=== PATIENT | male | born 1965 | race Caucasian/White ===

== ENCOUNTER 2020-06-21 16:36 | Inpatient (IN) | payer OTHER, SELFPAY ==
[2020-06-21] VITALS (66 sets, daily range): BP systolic 116–164; BP diastolic 85–118; PULSE 71–109; RESP 11–24; TEMP 36.8–37.2; O2SAT 88–98; BMI 29.8
--- NOTE | 2020-06-21 16:52 | XRR_ITS ---
PROCEDURE INFORMATION: Exam: XR Chest Exam date and time: 06/21/2020 4:54 PM Age: 54 years old Clinical indication: Chest pain; Additional info: Stemi TECHNIQUE: Imaging protocol: XR of the chest. Views: 1 view. COMPARISON: No relevant prior studies available. FINDINGS: Lungs: Unremarkable. No consolidation. Pleural spaces: Unremarkable. No pleural effusion. No pneumothorax. Heart/Mediastinum: Unremarkable. No cardiomegaly. Bones/joints: Unremarkable. XR/XR chest 1V portable [id number] IMPRESSION: No acute findings.
--- NOTE | 2020-06-21 16:52 | ECG_ITS ---
[facility] Test Date: 2020-06-21 Pat Name: MARY ELLIS Department: Room: ICU04 Gender: Male Client Services Account Manager: : 1965 Requested By: Tian Stern Order Number: [id number] Solano MD: Ovidio Ackerman M.D. Measurements Intervals [place] Rate: 80 P: 58 OR: 186 QRS: -10 QRSD: 107 T: 65 QT: 367 QTc: 425 Interpretive Statements SINUS RHYTHM WITH SINUS ARRHYTHMIA SEPTAL MYOCARDIAL INFARCTION [40+ ms Q WAVE IN V1/V2], PROBABLY RECENT Compared to ECG 06/21/2020 16:47:34 ST (T wave) deviation no longer present Myocardial infarct finding still present Electronically Signed On 06-22-2020 20:12:26 CDT by Ovidio Ackerman M.D. [email or web address]/store/[id number] ingris
[2020-06-21] MEDS: aspirin 81 mg Chew Tablet 324 MG PO (16:57)
--- NOTE | 2020-06-21 16:57 | XACV_ITS ---
Exam Room: [facility] Ht: 178 cm Wt: 94 kg BSA: 2.18 m2 Gender: Male : 1965 Exam Priority: Routine Procedure(s): Procedure Description: Diagnostic procedure Procedure Description: PCI procedure Procedure Description: Left Heart Catheterization Procedure Description: Drug Eluting Coronary Stent Procedure Description: PTCA Diagnostic Cath Status: Emergency Diagnostic Findings * CX has no significant stenosis. * RCA has minor luminal irregularities. * LAD is a large vessel. Proximal to mid LAD has a severe stenosis with large thrombus burden. Proximal Left Anterior Descending Coronary Artery to mLAD: Severe 99% stenosis, SANTY: 1 flow. * LM has 0% stenosis. * Coronary angiography shows right dominance. PCI Status: Emergency PCI Indication: STEMI - Immediate PCI for STEMI Interventional Findings * Procedure detail: We engaged left main artery using XB 3.5 guide catheter. IV heparin was used to maintain an ACT above 250 seconds. A 0.014 run-through guidewire was used to cross the LAD stenosis. We predilated the stenosis with 2.75 x 12 mm semicompliant balloon. This was followed by placement of 4.0 x 22 mm resolute [place] drug-eluting stent. At this time we noted no reflow/slow flow phenomenon.Post dilation of the stent was performed with a 4.0x8 mm NC balloon. Intracoronary cardene was initially delivered through the guide catheter without resolution of no reflow. We then delivered intracoronary cardene to distal coronary bed through a Teleport microcatheter. This resulted in resolution of no reflow and establishment of TIMI3 flow and resolution of ST changes. At this time final angiogram was performed that showed excellent stent expansion, no residual stenosis and SANTY-3 flow. Guidewire and guide catheter were removed. Femoral artery sheath was sutured in place for removal later. Patient left the Automation And Controls Manager in a stable condition. * Proximal Left Anterior Descending Coronary Artery to mLAD: 99% stenosis treated with AB TREK 2.75X12 RX BALLOON, MATILDE Ku MARIANNA 4.0X22 TODD, and MATILDE BO EUPHORA RX [id number] BALLOON. 0% residual stenosis, SANTY: 3 flow. Conclusions 1. There is thrombotic occlusion of the proximal to mid LAD (culprit for the acute ST elevation PR). 2. Mild left ventricular systolic dysfunction. Ejection fraction of 40%. 3. Proximal Left Anterior Descending Coronary Artery to mLAD was treated with two Balloon and Drug Eluting Stent. Recommendations * Transfer to ICU. * Aspirin and plavix for atleast 1 year. * High intensity statin therapy. * Beta blockers and lisinopril. * Order echocardiogram. * Outpatient cardiology follow up. Interventional RX Recommendation: PCI w/o planned CABG Diagnostic RX Recommendation: PCI w/o planned CABG Anticoagulation: Heparin Ventriculography Ejection Fraction: 40.0 % Left Ventriculography Findings: * Moderate hypokinesis of the apical segments. Pressures Phase:Rest AO : 126 / 84 ( 104 ) @ 1:05:00 PM 131 / 81 ( 106 ) @ 1:28:00 PM 136 / 67 ( 99 ) @ 1:28:00 PM LV : 149 / -10 / @ 1:27:00 PM 150 / -9 / @ 1:27:00 PM 142 / -2 / @ 1:28:00 PM 144 / -2 / @ 1:28:00 PM 145 / -3 / @ 1:28:00 PM Valves Phase:DefaultPhase AV : 11.0 @ 6:38:29 PM AV Mean Gradient: 22.0 @ 6:38:29 PM Clinical Evaluation EBL: 5mL-10mL Procedural Details Admit Source: Emergency department. Pre-Procedure Time Out. Identified patient by full name and date of as verbalized by the patient/guarantor. Does the consent match the physician's order: Yes. Accurate & Complete Informed Consent: Yes. Inpatient/Outpatient History & Physical on Chart: N/A Emergent. If H&P is completed, is and addenduem needed: N/A Emergent; If yes, is the addendum complete: N/A Emergent. Visualize and Verify Site with Patient/Guarantor: N/A. Relevant Radiology Images available: N/A Emergent. Pre-op teaching completed and patient verbalized understanding. The risks, benefits, and alternatives of sedation and/or procedure were discussed by physician. The patient agrees to continue. Procedure started. Correct patient, site and procedure confirmed by cath team. PERRLA. Strong, equal hand clinical engineering director bilaterally. Lungs clear x 5 lobes. IV Site on Arrival: 18 gauge in the left anticubital. Oxygen started at 2liters/min via nasal canula. bilateral groins was prepped with chloroprep then draped in the usual sterile fashion. right radial was prepped with chloroprep then draped in the usual sterile fashion. Physician notified. Baseline sample Acquired. HR: 86 BPM. Physician arrived. Physician scrubbed in. Immediate Pre-Procedure Time Out. Correct Patient: Yes; Correct Procedure: Yes; Correct Site: Yes; Correct Patient Position: Yes; Correct Supplies: Yes; Dried Flammable Prep: N/A Emergent; Informed Consent not obtained due to time critical life threat; Blood Products Available: N/A Emergent; Informed Consent not obtained due to time critical life threat;. Lidocaine 1% infiltrated to the right radial. Arterial access obtained. 6 kittitian XB 3.5 guide catheter was inserted over the wire. Guide catheter out. unable to advance catheter in radial. Lidocaine 1% infiltrated to the right groin. Arterial access obtained with micropuncture set. 6 kittitian XB 3.5 guide catheter was inserted over the wire. Runthrough guidewire was advanced through the guide catheter to lesion in the prox LAD. Inflation number : 1 A AB TREK 2.75X12 RX BALLOON was prepped and advanced across the Prox LAD , then inflated to 10 ALEXIS for 0:19 seconds. Inflation number: 2 The AB TREK 2.75X12 RX BALLOON was reinflated across the Prox LAD, to 12 ALEXIS for 0:18 seconds. checking results. Balloon out. Inflation Number : 3 A MATILDE Ku MARIANNA 4.0X22 TODD -Lot Number# [id number] exp date: 02-16-2022 was prepped and advanced across the Prox LAD. The stent was deployed at 12 ALEXIS for 0:27 seconds. Stent balloon and wire out. Inflation number : 4 A MDT NC EUPHORA RX [id number] BALLOON was prepped and advanced across the Prox LAD , then inflated to 12 ALEXIS for 0:20 seconds. Inflation number: 5 The MDT NC EUPHORA RX [id number] BALLOON was reinflated across the Prox LAD, to 12 ALEXIS for 0:21 seconds. Balloon out. Runthrough guidewire was advanced through the guide catheter to lesion in the distal LAD. teleport microcatheter 2.1F in over wire to inject Cardene. short runthrough out. 300 runthrough out. 300 runthrough inserted through teleport. teleport out. runthrough out. Guide catheter out. A 5 kittitian JR4 catheter in over wire. Multiple views taken of right coronary artery. ACT drawn. Results 201 seconds. Therapeutic limits - pre-heparin administration 90-150 seconds and monitoring heparin during a vascular procedure >250 seconds. Catheter out. A 5 kittitian Angled Pig catheter in over wire. EDP Sample taken: LV 149/-11,22; HR: 95 BPM; SpO2: Off%. LV gram performed in MARTINEZ @ 10 mL/second for a total of 30 mL. EDP Sample taken: LV 142/-3,24; HR: 100 BPM; SpO2: 98%. Pullback taken: LV 145/-4,22; AO 131/81(106); Mean: 22mmHg, Peak to Peak: 11mmHg, SEP: 9sec/min; HR: 94 BPM; SpO2: 98%. Catheter removed over the exchange wire. randal shot performed. TR band placed. Hemostasis obtained. Sheath(s) sutured into position with 2-0 silk and sterile 4x4's and Op-site applied over the site. No oozing or signs and symptoms of hematoma noted. Arterial sheath flushed and connected to tranducer and pressure bag with heparinized saline. PERRLA. Strong, equal hand clinical engineering director bilaterally. No VTE prophylaxis required. Medication's Wasted: Lidocaine 1% = 5 mL. Medication's Wasted: Nitro = 49.6 mg. Medication's Wasted: Other = Cardene 24.25 mg. Medication's Wasted: Heparin = 1000 units. Total IV fluids: 75 mL. Contrast type used: Omnipaque 300 mgI/mL, 500 mL bottle. Contrast Material : Omnipaque 325 ml. [facility] Clinical Fraility Score: 2: Well. Automation And Controls Manager Indications: ACS <= 24 hours. Chest Pain Symptom Assessment: Typical Angina Symptoms. Cardiovascular Instability: No,. PCI Indication: STEMI - Stable (<= 12 hrs from symptom onset). Post-op diagnosis: acute ST elevation PR, PCI. Complications: none. Estimated blood loss: 5mL-10mL. Procedure completed. A Suture was successful obtaining hemostatsis at the Right Femoral artery insertion site. A TR Band was successful obtaining hemostatsis at the Right Radial artery insertion site. Patient transferred by bed to ICU. Vital chart was stopped. Access Site Site: Right Radial artery Sheath Size: 6 Fr Hemostasis Method: TR Band Hemostasis Success: Successful Site: Right Femoral artery Sheath Size: 6 Fr Hemostasis Method: Suture Hemostasis Success: Successful Procedure Medications Start: 5:33 PM Stop: 5:33 PM Medication: Versed Amount: 1 mg Route: I.V. Start: 5:33 PM Stop: 5:33 PM Medication: Fentanyl Amount: 50 mcg Route: I.V. Start: 5:35 PM Stop: 5:35 PM Medication: Versed Amount: 1 mg Route: I.V. Start: 5:36 PM Stop: 5:36 PM Medication: Nitrogylcerin Amount: 200 mcg Route: I.A. Start: 5:40 PM Stop: 5:40 PM Medication: Fentanyl Amount: 50 mcg Route: I.V. Start: 5:46 PM Stop: 5:46 PM Medication: Heparin Amount: 6000 units Route: I.V. Start: 5:51 PM Stop: 5:51 PM Medication: Aggrastat 12.5 mg/250 mL Amount: 47 ml Route: I.V. bolus Start: 5:52 PM Stop: 5:52 PM Medication: Aggrastat 12.5 mg/250 mL Amount: 16.9 ml/hr Route: I.V. drip Start: 5:57 PM Stop: 5:57 PM Medication: Nitrogylcerin Amount: 200 mcg Route: I.C. Start: 5:58 PM Stop: 5:58 PM Medication: Cardene Amount: 250 mcg Route: I.C. Start: 6:03 PM Stop: 6:03 PM Medication: Cardene Amount: 250 mcg Route: I.C. Start: 6:12 PM Stop: 6:12 PM Medication: Cardene Amount: 250 mcg Route: I.C. Start: 6:27 PM Stop: 6:27 PM Medication: Heparin Amount: 2000 units Route: I.V. I, the attending physician, have reviewed and verified all procedure medications. Yes, all medications given per verbal order Report Signatures Finalized by Ovidio Ackerman MD on 07/05/2020 06:58 PM
[2020-06-21] MEDS: morphine 4 mg/mL SDV 1 mL 2 MG IVP (16:59)
[2020-06-21] MEDS: ondansetron 2 mg/ML SDV 2 mL 4 MG IVP (17:00)
[2020-06-21] MEDS: clopidogrel 300 mg Tablet 600 MG PO (17:00)
[2020-06-21] MEDS: nitroglycerin drip 50 MG/250 ML PREMIX IV (17:01)
[2020-06-21] MEDS: heparin 5,000 unit/mL INJ 1 mL 4000 UNIT IVP (17:01)
--- NOTE | 2020-06-21 17:12 | P.HP_ITS ---
Providers/Chief Complaint Admitting Physician: Ovidio Ackerman MD Chief Complaint: CP History of Present Illness MARY ELLIS is a 54 year old male with no significant past medical history and tobacco abuse who was visiting [place] for the weekend started noticing chest discomfort last night. It was on and off. Throughout the day he had significant chest discomfort. Since noon (4-5 hours ago) the chest discomfort became more continuous. Severe and radiating to the jaw and both arms. EKG performed in the ER shows ST elevations in the anterior leads. Patient has been loaded with aspirin and Plavix. He has also received heparin bolus. He was emergently taken to the Traffic Sign Supervisor and coronary angiogram showed large thrombus burden in proximal LAD. He underwent successful revascularization with TODD x1. Review of Systems Narrative: CONSTITUTIONAL: No fever chills weight loss or gain or night sweats. [] HEENT: Normocephalic, atraumatic.[] RESPIRATORY: No cough, sputum, hemoptysis or wheezing.[] CARDIOVASCULAR: Severe chest pain GI: no nausea vomiting diarrhea. [] MELT SUPERVISOR: No numbness, tingling, weakness or loss of function in any part of the body. [] MUSCULOSKELETAL: No knee or joint pain or rashes. [] Medications/Allergies Home Medications Medication Instructions Recorded Confirmed Last Taken Type No Known Home Medications 06/21/20 06/21/20 Unknown History Allergies Allergy/AdvReac Type Severity Reaction Status Date / Time rosuvastatin [From Crestor] Allergy Unknown Verified 06/21/20 17:24 PFSH Acute PFSH: Family History Other Hypertension Social History Smoking and tobacco status: current every day smoker Vitals/I&O/Wt Last Vital Signs Temp 98.9 F 06/21/20 16:55 Pulse 91 06/21/20 17:01 Resp 16 06/21/20 17:01 BP 164/111 06/21/20 17:01 Pulse Ox 98 06/21/20 17:01 Weight last 48 hrs Weight 208 lb Physical Exam Narrative: EXAM NARRATIVE: GENERAL: Patient is alert, awake and oriented x3. [] NECK: No jugular vein distension. [] HEENT: No cyanosis. No icterus. No pallor. [] HEART: Regular S1 and S2. No murmur, rub or gallop. [] LUNGS: Clear to auscultate bilaterally. [] ABDOMEN: Soft, nontender and nondistended. Positive bowel sounds. No guarding, rebound or tenderness. [] CENTRAL NERVOUS SYSTEM: Grossly nonfocal. [] EXTREMITIES: Lower extremities with no edema bilaterally. Pulses palpable in the lower extremities, both dorsalis pedis and posterior tibial. [] Data : 06/21/20 16:54 06/21/20 16:54 A&P Assessment and plan (1) STEMI (ST elevation myocardial infarction): Status: Acute (2) Tobacco abuse: Status: Acute Patient haD acute ST elevation [place]. Emergent coronary angiogram demonstrated thrombotic occlusion of proximal LAD for which he underwent successful revascularization with TODD x1. SANTY-3 flow established. Admit to ICU Continue aspirin and Plavix for at least 1 year Beta-rufus and lisinopril Order echocardiogram. Smoking cessation advised. Attestations Medical Necessity Statement*: Care expected to cross [address] mid[address]. Patient presented with ST elevation [place] and underwent successful revascularization of proximal LAD. Coding Level of Care Code Acute Metal Casting Trades Worker for [facility] Diagnoses STEMI (ST elevation myocardial infarction) I21.3 Tobacco abuse Z72.0
--- NOTE | 2020-06-21 17:12 | ED_ITS ---
HPI - Chest Pain General: Chief Complaint: Chest Pain Stated Complaint: CP Time Seen by Provider: 06/21/20 16:49 History of Present Illness: HPI narrative: The patient is a 54-year-old male smoker who comes to the ER complaining of left-sided chest pain on and off through the night and it has persisted today. Also has shortness of breath and nausea. Pain radiates to his left jaw and left shoulder. EKG shows STEMI in leads V2 through 5. He says his brother in his early 40s from a heart attack. MD complaint: chest pain Timing of current episode: constant Onset: during rest and during exertion Pain location: left chest Pain radiation: jaw/teeth and left shoulder Quality: sharp Relieving factors: nothing Exacerbating factors: exertion Associated symptoms: Reports no associated symptoms; Deny abdominal pain, dyspnea or palpitations Treatment prior to arrival: none Review of Systems General: Reports: 10 or more systems reviewed and unremarkable except in HPI and below Const: Denies: fatigue Eyes: Denies: change in vision, blurry vision or eye redness ENMT: Denies: throat pain, swelling of lips/tongue, ear or mastoid pain or nasal congestion Card: Reports: chest pain; Denies: palpitations, irregular heart rhythm, edema, dyspnea on exertion or orthopnea Resp: Denies: dyspnea, productive cough or non-productive cough GI: Denies: abdominal pain, diarrhea or GI cramping : Denies: flank pain, urinary frequency or urinary urgency Musc: Denies: neck pain, back pain, extremity pain, joint pain, joint redness, limited range of motion or muscle weakness Skin/Breast: Denies: rash, pruritus, erythema, skin pain or skin tenderness Neuro: Denies: headache(s), numbness in extremities, weakness in extremities, sensory changes, difficulty walking, dizziness, confusion or Slurred speech present Psych: Denies: anxiety or depression Endo: Denies: polyuria All/Imm: Denies: urticaria, throat swelling or tongue swelling PFSH ED PFSH: Family History (Updated 06/21/20 @ 17:16 by Ovidio Ackerman M.D) Other Hypertension Social History Smoking and tobacco status: current every day smoker Physical Exam Const: COMMON NORMALS: no acute distress, average body habitus, patient oriented x3, no limitations, healthy appearing, alert and well nourished GENERAL APPEARANCE: cooperative, comfortable, well kempt and well developed ORIENTATION/CONSCIOUSNESS: Yes awake, Yes oriented to person, Yes oriented to place and Yes oriented to time HENMT: COMMON NORMALS: normocephalic, external ears normal and Normal external nose present HEAD & SCALP: normal to inspection and normocephalic NOSE: Normal external nose present EXTERNAL EAR: Yes external ears normal MOUTH: Normal oral and palatal mucosa present THROAT: posterior oropharynx normal Eye: COMMON NORMALS: Equal, round and reactive pupils present and EOMs intact bilaterally GENERAL EYE: appearance normal, both eyes and all related structures PUPIL: Yes Equal, round and reactive pupils present Neck/C-Spine: COMMON NORMALS: full ROM, no lymphadenopathy, no meningeal signs and no JVD GENERAL: Yes normal visual inspection Lymph: LYMPHATIC: no lymphadenopathy noted Chest: COMMONS NORMALS: normal inspection of the chest and normal palpation of entire chest wall Resp: COMMON NORMALS: normal respiratory effort, No retractions, No use of accessory muscles, clear to auscultation bilaterally and percussion normal EFFORT & INSPECTION: Yes able to speak in complete sentences AUSCULTATION: clear to auscultation bilaterally PERCUSSION: percussion normal Cardio: COMMON NORMALS: no JVD, regular rate, regular rhythm, S1 normal heart sound present, S2 normal heart sound present and Peripheral pulses 2+ throughout RATE: regular rate RHYTHM: regular rhythm HEART SOUNDS: S1 normal heart sound present and S2 normal heart sound present PERIPHERAL PULSES: Peripheral pulses 2+ throughout GI: COMMON NORMALS: Normal to inspection, nondistended, normoactive bowel sounds present, Soft to palpation, non-tender and no masses INSPECTION: Yes normal to inspection PALPATION: Yes Soft to palpation : COMMON NORMALS: Yes no CVA tenderness BLADDER/KIDNEY EXAM: Yes no CVA tenderness Back/Pelvis: COMMON NORMALS: no CVA tenderness, thoracic and lumbar spine normal to inspection, no thoracic nor lumbar tenderness and thoraco-lumbar ROM normal Extremity: COMMON NORMALS: normal to inspection, full ROM, capillary refill normal, no joint enlargement and no pedal edema GENERAL: Yes normal exam except as noted Neuro: COMMON NORMALS: patient oriented x3, CN's II-XII intact bilaterally, moves all extremities, no focal motor deficits, no sensory deficits noted and gait normal SENSORIUM/ORIENTATION: Yes alert, Yes oriented to person, Yes oriented to place and Yes oriented to time MENINGEAL SIGNS: Yes no meningeal signs Psych: COMMON NORMALS: mental status grossly normal, Normal thought process present, cooperative, normal affect and speech normal APPEARANCE: Yes well kempt ATTITUDE: Yes calm SPEECH: Yes normal speech THOUGHT PROCESS: Normal thought process present Skin: COMMON NORMALS: no rashes or lesions noted GENERAL SKIN EXAM: no rashes or lesions noted Course Vital Signs: Vital signs: Vital Signs Temperature 98.9 F 06/21/20 16:55 Pulse Rate 91 06/21/20 17:01 Respiratory Rate 16 06/21/20 17:01 Blood Pressure 164/111 06/21/20 17:01 Pulse Oximetry 98 06/21/20 17:01 MDM - Chest Pain MDM Narrative: Medical decision making narrative: 514pm: STEMI seen on EKG read by me at 1648 and immediately activated a STEMI alert. Discussed with Dr. Ackerman over the phone the EKG findings and he arrived shortly thereafter. Given aspirin, Plavix, heparin load, morphine, Zofran, nitroglycerin drip. Waiting on Scrub Nurse for transfer. Left ed in stable condition at 1726 to quality assurance qa lab analyst Lab Data: Labs: Lab Results 06/21/20 06/21/20 Range/Units 16:54 16:54 WBC 13.2 H (4.0-10.0) 10^3/ uL RBC 4.86 (4.1-5.3) 10^6/u L Hgb 15.0 (11.7-16.6) g/dL Hct 45.2 (42.0-52.0) % MCV 93.0 (80-94) fL MCH 30.9 (28.0-34.0) pg MCHC 33.2 (30.0-36.0) g/dL RDW 13.2 (12.1-15.1) % Plt Count 226 (130-400) 10^3/c mm MPV 11.2 H (7.4-10.4) fL Neut % (Auto) 86.5 % Lymph % (Auto) 9.9 % [place] % (Auto) 2.7 % Eos % (Auto) 0.2 % Baso % (Auto) 0.2 % Neut # (Auto) 11.40 H (1.8-7.7) 10^3/u L Lymph # (Auto) 1.3 (0.8-4.8) 10^3/u L [place] # (Auto) 0.4 (0.2-0.9) 10^3/u L Eos # (Auto) 0.0 (0.0-0.8) 10^3/u L Baso # (Auto) 0.0 (0.0-0.1) 10^3/u L Nucleated RBC % (a uto) 0 % Nucleated RBCs # 0.0 /100WBC PT 13.10 (12.1-14.9) SECO NDS INR 0.96 (0.8-1.2) APTT 28.1 (23.9-36.7) SECO NDS Discharge Plan Discharge Patient Disposition: Admitted As Inpatient Clinical Impression: STEMI (ST elevation myocardial infarction) Condition: Stable Coding Level of Care Code ED Architecture Faculty Member for Michelle Fwd Exam Comprehensive
[2020-06-21 17:15] LABS: Basophils % 0.2 %; Eosinophils % 0.2 %; Hematocrit 45.2 % (42.0-52.0); Lymphocytes # 1.3 10^3/uL (0.8-4.8); Lymphocytes % 9.9 %; Mean Corpuscular HGB Conc 33.2 g/dL (30.0-36.0); Mean Corpuscular Hemoglobin 30.9 pg (28.0-34.0); Mean Platelet Volume 11.2 fL (7.4-10.4); Monocytes # 0.4 10^3/uL (0.2-0.9); Monocytes % 2.7 %; Neutrophils % 86.5 %; Nucleated Red Blood Cells % 0 %; Platelet Count 226 10^3/cmm (130-400); Red Blood Count 4.86 10^6/uL (4.1-5.3); Red Cell Distribution Width 13.2 % (12.1-15.1); White Blood Count 13.2 10^3/uL (4.0-10.0)
[2020-06-21 17:22] LABS: INR 0.96 (0.8-1.2)
[2020-06-21 17:23] LABS: Partial Thromboplastin Time 28.1 SECONDS (23.9-36.7)
[2020-06-21 17:26] LABS: D Dimer <= 0.27 ug/mIFEU (0-0.59)
[2020-06-21 17:36] LABS: Troponin(5th) Baseline 72 ng/L (0-15)
[2020-06-21 17:43] LABS: Alanine Aminotransferase 16 U/L (0-41); Albumin Level 4.8 g/dL (3.5-5.2); Alkaline Phosphatase 108 IU/L (40-130); Anion Gap 15.7 (5-19); Aspartate Amino Transferase 18 U/L (0-40); Blood Urea Nitrogen 20 mg/dL (6-20); Calcium 9.5 mg/dL (8.5-10.5); Carbon Dioxide 27 mmol/L (22-29); Chloride 104 mmol/L (98-107); Creatine Phosphokinase 168 U/L (39-308); Globulin 1.9 g/dL (1.3-4.6); Glomerular Filtration Rate 100.7 mL/min (90-130); Glucose 131 mg/dL (65-115); NT Pro B Type Natriuretic Pept 489 pg/mL (0-125); Osmolality Calculated 298 mOsm/kg (285-295); Potassium 4.7 mmol/L (3.5-5.1); Sodium 142 mmol/L (136-145); Total Bilirubin 0.2 mg/dL (0.15-1.2); Total Protein 6.7 g/dL (6.6-8.7)
[2020-06-21] MEDS: sodium chloride 0.9% 1,000 ML 100 ML IV (19:55)
[2020-06-21 19:59] LABS: Troponin 5 2HR 4574 ng/L (0-15); Troponin 5 2HR Delta 4502 ABS# (0-10)
--- NOTE | 2020-06-21 22:52 | ECG_ITS ---
[facility] Test Date: 2020-06-21 Pat Name: MARY ELLIS Department: Room: Gender: Male Commercial Housekeeper: : 1965 Requested By: Tian Stern Order Number: [id number] Solano MD: Ovidio Ackerman M.D. Measurements Intervals [place] Rate: 83 P: 56 LA: 159 QRS: -13 QRSD: 96 T: 37 QT: 335 QTc: 395 Interpretive Statements SINUS RHYTHM WITH SINUS ARRHYTHMIA POSSIBLE RIGHT VENTRICULAR CONDUCTION DELAY [RSR (QR) IN V1/V2] SEPTAL MYOCARDIAL INFARCTION [40+ ms Q WAVE IN V1/V2], POSSIBLY ACUTE MARKED ST ELEVATION, CONSIDER ANTEROLATERAL INJURY [MARKED ST ELEVATION W/O NORMALLY INFLECTED T WAVE IN V3-V6] ACUTE [place] No previous ECG available for comparison Electronically Signed On 06-22-2020 20:15:08 CDT by Ovidio Ackerman M.D. [email or web address]/[id number]
[2020-06-22] VITALS (88 sets, daily range): BP systolic 103–137; BP diastolic 54–102; PULSE 70–101; RESP 10–30; TEMP 36.6; O2SAT 87–96
[2020-06-22 00:44] LABS: Troponin 5 6HR 4847 ng/L (0-15); Troponin 5 6HR Delta 4775 ng/L (0-12)
[2020-06-22 00:46] LABS: Partial Thromboplastin Time 24.2 SECONDS (23.9-36.7)
[2020-06-22] MEDS: atorvastatin 40 mg Tablet 80 MG PO ×2 (01:35→20:04)
--- NOTE | 2020-06-22 02:29 | PC.NURSE ---
Patient arrived to ICU from clinical laboratory medical director at 1900 on 06/21/20. Patient a&o x4. Right radial TR Band on with 16 mL's of air. Right femoral sheath in place. TR band off at 2330. Sheath pulled at 0118, pressure held until 0138. No s/s of bleeding or hematoma noted. Patient tolerated well. Continue care.
[2020-06-22] MEDS: sodium chloride 0.9% 1,000 ML 100 ML IV (04:36)
[2020-06-22 06:05] LABS: Basophils % 0.2 %; Eosinophils # 0.1 10^3/uL (0.0-0.8); Eosinophils % 0.7 %; Hematocrit 39.3 % (42.0-52.0); Hemoglobin 12.8 g/dL (11.7-16.6); Lymphocytes # 1.4 10^3/uL (0.8-4.8); Mean Corpuscular HGB Conc 32.6 g/dL (30.0-36.0); Mean Corpuscular Hemoglobin 30.5 pg (28.0-34.0); Mean Corpuscular Volume 93.6 fL (80-94); Mean Platelet Volume 11.6 fL (7.4-10.4); Monocytes # 0.8 10^3/uL (0.2-0.9); Monocytes % 7.6 %; Neutrophils % 77.1 %; Nucleated Red Blood Cells % 0 %; Platelet Count 173 10^3/cmm (130-400); Red Cell Distribution Width 13.3 % (12.1-15.1); White Blood Count 9.9 10^3/uL (4.0-10.0)
[2020-06-22 06:29] LABS: Anion Gap 12.6 (5-19); Blood Urea Nitrogen 15 mg/dL (6-20); Calcium 8.7 mg/dL (8.5-10.5); Carbon Dioxide 27 mmol/L (22-29); Chloride 106 mmol/L (98-107); Glomerular Filtration Rate 140.4 mL/min (90-130); Glucose 130 mg/dL (65-115); Osmolality Calculated 297 mOsm/kg (285-295); Potassium 3.6 mmol/L (3.5-5.1); Sodium 142 mmol/L (136-145)
[2020-06-22] MEDS: metoprolol tartrate 25 mg Tablet PO ×2 (07:59→20:04)
[2020-06-22] MEDS: aspirin 81 mg EC Tablet PO (08:00)
[2020-06-22] MEDS: clopidogrel 75 mg Tablet PO (08:00)
[2020-06-22] MEDS: lisinopril 10 mg Tablet PO (08:00)
--- NOTE | 2020-06-22 08:08 | PM.PN ---
Subjective Subjective: Interval history: Patient is doing well. No complaints of chest pain, shortness of breath or palpitations. His echo shows LVEF of 40%. Vitals/I&O/Wt Last Vital Signs Temp 98.3 F 06/21/20 18:55 Pulse 77 06/22/20 06:00 Resp 26 H 06/22/20 06:00 BP 131/89 06/22/20 06:00 Pulse Ox 90 06/22/20 06:00 06/21/20 06/22/20 06/22/20 22:59 06:59 14:59 Intake Total 931.667 / 991.667 Output Total 1400 / 1400 Balance 60 60 -468.333 / -408.333 Weight last 48 hrs Weight 208 lb Physical Exam Narrative: EXAM NARRATIVE: GENERAL: Patient is alert, awake and oriented x3. [] NECK: No jugular vein distension. [] HEENT: No cyanosis. No icterus. No pallor. [] HEART: Regular S1 and S2. No murmur, rub or gallop. [] LUNGS: Clear to auscultate bilaterally. [] ABDOMEN: Soft, nontender and nondistended. Positive bowel sounds. No guarding, rebound or tenderness. [] CENTRAL NERVOUS SYSTEM: Grossly nonfocal. [] EXTREMITIES: Lower extremities with no edema bilaterally. Pulses palpable in the lower extremities, both dorsalis pedis and posterior tibial. [] Data : 06/22/20 05:15 06/22/20 05:15 A&P Assessment and plan (1) STEMI (ST elevation myocardial infarction): Status: Acute (2) Tobacco abuse: Status: Acute Patient had acute ST elevation OR. Emergent coronary angiogram demonstrated thrombotic occlusion of proximal LAD for which he underwent successful revascularization with TODD x1. SANTY-3 flow established. Continue aspirin and Plavix for at least 1 year Beta-rufus and lisinopril ECHO shows moderately reduce LV systolic function with severe hypokinesis in the distribution of the LAD. No LV thrombus seen Smoking cessation advised. Patient can be transferred out of the ICU Attestations Medical Necessity Statement*: Care expected to cross 2 midnights. Patient had acute OR s/p successful revascularization Coding Level of Care Code Acute Taker Off [place] for [facility] Diagnoses STEMI (ST elevation myocardial infarction) I21.3 Tobacco abuse Z72.0
--- NOTE | 2020-06-22 11:24 | PC.NURSE ---
Patient was able to sit up on edge of the bed and move to chair to eat breakfast at 0740. After meal patient ambulated 2 laps around unit. Dressing on groin was dry and intact before and after ambulation. Vitals WNL
--- NOTE | 2020-06-22 12:23 | PC.CHAP ---
Pastoral Care Encounter/Spiritual Assessment Type of Contact [] Declined paper plate machine tender visit [] Patient/Family/Request visit [] Outpatient visit [x] Follow-up visit [] Physician referral [] Code/Alert [] Routine visit [] Staff referral [] Actively dying [] Patient sleeping [] Family support [] [] Out of room [] Palliative care [] [] Receiving care in room [] Pre-surgical visit [] Trauma [] Long length of stay [] ICU visit [] Other: Relational/Emotional Strength [] Patient feels connected with others/family/visitors/staff [] Distress [] Loneliness/isolation [] Abandonment Spirituality of Patient [] Person of Danii [] Attends Cheondoism of their Danii [] Believes in Prayer [] Reads Bible or Sabianism materials [] There are Spiritual issues to be addressed Pneumatic Tube Operator Interventions [] Prayer [] Active listening [] Non-anxious presence [] Spiritual/emotional support [] Crisis/trauma care [] Spiritual counseling [] Bereavement support [] Provided bereavement packet [] Provided Bible/devotional materials [] Provided toy/stuffed animal, coloring book to patient or family member [] Provided Communion [] Anointing/Cope [] Salvation [] Completed spiritual assessment [] Other: Impact on Illness or Injury [] Angry [] Fearful [] Anxious [] Often cries [] Exhaustion [] Unable to work [] Unable to attend moravian [] Unable to walk/stand [] Unable to read [] Unable to drive [] Unable to eat/drink [] Unable to sleep [] Unable to be with family [] Patient intubated [] Other: Summary Time spent with patient
--- NOTE | 2020-06-22 12:38 | USCV_ITS ---
MARY ELLIS Age: 54 Gender: M : 1965 Exam Date: 06/22/2020 13:37 Ordering Phys: Ovidio Ackerman M.D ([email or web address]) Technologist: Álvaro Morales Exam Location: [facility] [place] Indication: WALL MOTION BP: / HR: 78 Rhythm: Sinus Technical Quality: Adequate MEASUREMENTS (Male / Female) Normal Values 2D ECHO LV Ejection Fraction MOD 2C 46.4 % LV Ejection Fraction 2C AL 45.5 % FINDINGS Left Ventricle LV systolic function is moderately reduced with EF of 40%. There is severe hypokinesis of the apical, distal anterolateral, distal inferoseptal and anterior yu. No LV thrombus is seen Right Ventricle Right Atrium Left Atrium Mitral Valve Aortic Valve Tricuspid Valve Pulmonic Valve Pericardium Aorta CONCLUSIONS Moderately reduced LV systolic function with above mentioned regional wall motion abnormalities No LV thrombus is seen Ovidio Ackerman MD (Electronically Signed) Final Date: 22 June 2020 18:16 S
[2020-06-22] MEDS: perflutren protein-a microsphr 0.22 mg/mL SDV 3 mL IV (14:35)
--- NOTE | 2020-06-22 19:49 | USCV_ITS ---
MARY ELLIS Age: 54 Gender: M : 1965 Exam Date: 06/22/2020 06:42 Ordering Phys: Ovidio Ackerman M.D ([email or web address]) Technologist: Álvaro Morales [place]am [place] [facility] [place] Indication: POST CO STENTS BP: 127 / 89 HR: 77 Rhythm: Sinus Technical Quality: Fair MEASUREMENTS (Male / Female) Normal Values 2D ECHO LV Diastolic Diameter PLAX 5.1 cm 4.2 - 5.9 / 3.9 - 5.3 cm LV Systolic Diameter PLAX 3.3 cm IVS Diastolic Thickness 1.3 cm 0.6 - 1.0 / 0.6 - 0.9 cm IVS Systolic Thickness 1.4 cm LVPW Diastolic Thickness 1.5 cm 0.6 - 1.0 / 0.6 - 0.9 cm LVPW Systolic Thickness 1.3 cm LVOT Diameter 2.0 cm LV Ejection Fraction 2D Teich 51.0 % LA Diameter 3.1 cm LA Width 3.7 cm LA Height 4.5 cm RA Width 3.5 cm Aorta at Sinotubular Diameter 2.4 cm M-MODE LV Diastolic Diameter MM 5.4 cm 4.2 - 5.9 / 3.9 - 5.3 cm LV Systolic Diameter MM 3.9 cm LV Ejection Fraction MM Teich 52.6 % IVS Diastolic Thickness MM 1.0 cm 0.6 - 1.0 / 0.6 - 0.9 cm IVS Systolic Thickness MM 1.6 cm LVPW Diastolic Thickness MM 1.1 cm 0.6 - 1.0 / 0.6 - 0.9 cm LVPW Systolic Thickness MM 1.7 cm RV Diastolic Diameter MM 1.4 cm Aortic Annulus Diameter 3.8 cm LA Ao Ratio MM 0.8 MV E Point Septal Separation 1.1 cm DOPPLER AV Peak Velocity 110.0 cm/s LVOT Peak Velocity 82.0 cm/s AV Area Cont Eq vti 2.3 cm squared AV Area Cont Eq pk 2.4 cm squared MV Area PHT 5.0 cm squared Mitral E to A Ratio 1.2 MV E' Velocity 49.5 cm/s Mitral E to MV E' Ratio 10.9 Mitral E to LV E' Lateral Ratio 11.8 Mitral E to LV E' Septal Ratio 10.3 TR Peak Velocity 162.0 cm/s TR Peak Gradient 10.5 mmHg Right Atrial Pressure 2.0 mmHg Pulmonary Artery Systolic Pressu 12.5 mmHg PV Peak Velocity 93.0 cm/s FINDINGS Left Ventricle Left ventricle is mildly dilated. LV systolic function is moderately reduced with EF of 35-40%. There is severe hypokineis of the apical, anterior, anteroseptal, and apical inferoseptal yu. Normal diastolic filling pattern. Can not rule out LV thrombus Right Ventricle The right ventricle is normal in size and function. Right Atrium The right atrium is normal in size. Left Atrium The left atrium is normal in size. Mitral Valve Structurally normal mitral valve without significant stenosis or prolapse. There is no mitral regurgitation. Aortic Valve Grossly normal without significant sclerosis or stenosis. There is no aortic regurgitation. Tricuspid Valve Structurally normal tricuspid valve without significant stenosis or regurgitation. Insufficient TR jet to calculate RVSP. Pulmonic Valve Structurally normal pulmonic valve without significant stenosis. There is no pulmonic regurgitation. Pericardium Normal pericardium without effusion. Aorta Normal ascending aorta dimension. CONCLUSIONS LV systolic function is moderately reduced with EF of 35-40%. Above mentioned regional wall motion abnormalities Diastolic function is normal No significant valvular heart disease No comparison studies are available Recommend echo with contrast to rule out LV thrombus Ovidio Ackerman MD (Electronically Signed) Final Date: 22 June 2020 12:37 S
[2020-06-23] VITALS (16 sets, daily range): BP systolic 107–128; BP diastolic 74–87; PULSE 65–86; RESP 10–26; TEMP 36.8; O2SAT 90–96
--- NOTE | 2020-06-23 06:32 | PC.NURSE ---
Patient got up to chair several times during the night and ambulated to the bathroom independently. Patient denied having any pain all evening. Dr. Ackerman discussed discharging the patient if all safety measures are met. Continue care.
[2020-06-23] MEDS: lisinopril 10 mg Tablet PO (09:34)
[2020-06-23] MEDS: metoprolol tartrate 25 mg Tablet PO (09:34)
[2020-06-23] MEDS: clopidogrel 75 mg Tablet PO (09:34)
[2020-06-23] MEDS: aspirin 81 mg EC Tablet PO (09:35)
--- NOTE | 2020-06-23 09:53 | PM.DCS ---
Discharge Providers Date of Admission: 06/21/20 18:27 Date of Discharge: June 23, 2020 Attending Provider at Admission: Ovidio Ackerman M.D Attending Provider at Discharge: Ovidio Ackerman M.D Diagnoses at Discharge Discharge Diagnosis (1) STEMI (ST elevation myocardial infarction): (2) Tobacco abuse: Status: Acute Reason for Visit Reason for Visit: CP Brief History: MARY ELLIS is a 54 year old male with no significant past medical history and tobacco abuse who was visiting [place] for the weekend started noticing chest discomfort last night. It was on and off. Throughout the day he had significant chest discomfort. Since noon (4-5 hours ago) the chest discomfort became more continuous. Severe and radiating to the jaw and both arms. EKG performed in the ER shows ST elevations in the anterior leads. Patient was loaded with aspirin and Plavix. He also received heparin bolus. Hospital Course Hospital Course MARY ELLIS is a 54 year old male with no significant past medical history and tobacco abuse who was visiting [place] for the weekend started noticing chest discomfort last night. It was on and off. Throughout the day he had significant chest discomfort. Since noon (4-5 hours ago) the chest discomfort became more continuous. Severe and radiating to the jaw and both arms. EKG performed in the ER shows ST elevations in the anterior leads. Patient was loaded with aspirin and Plavix. He also received heparin bolus. He was found to have thrombotic occlusion of proximal LAD. We performed successful revascularization with TODD x1 with resolution of ST changes and chest pain. Echocardiogram showed LVEF of 40%. Patient stayed in the hospital for 2 nights and was in stable condition at time of discharge. Physical Exam Narrative: EXAM NARRATIVE: GENERAL: Patient is alert, awake and oriented x3. [] NECK: No jugular vein distension. [] HEENT: No cyanosis. No icterus. No pallor. [] HEART: Regular S1 and S2. No murmur, rub or gallop. [] LUNGS: Clear to auscultate bilaterally. [] ABDOMEN: Soft, nontender and nondistended. Positive bowel sounds. No guarding, rebound or tenderness. [] CENTRAL NERVOUS SYSTEM: Grossly nonfocal. [] EXTREMITIES: Lower extremities with no edema bilaterally. Pulses palpable in the lower extremities, both dorsalis pedis and posterior tibial. [] Discharge Data Data Completed and Pending: Completed Studies During Hospitalization Category Date Time Status XR chest 1V brigid ble [id number] Stat Exams 06/21/20 16:52 Completed CV echo complete* [id number] Routine Ultrasound 06/22/20 19:49 Completed CV echo lmt wo/w contras [id number] Rout ine Ultrasound 06/22/20 12:38 Completed Pending at discharge Category Date Time Status BLOCK PILER request for service Stat Exams 06/21/20 16:57 Taken Basic Metabolic P mercedes Routine Lab 06/23/20 09:16 Ordered US/CV paperwork R outine Ultrasound 06/22/20 Taken Labs from last 24 hours 06/23/20 09:33 Sodium Pending Potassium Pending Chloride Pending Carbon Dioxide Pending Anion Gap Pending BUN Pending Creatinine Pending GFR Calculation Pending Glucose Pending Calculated Osmolal ity Pending Calcium Pending Vitals: Last Vital Signs Temp 97.9 F 06/22/20 20:00 Pulse 66 06/23/20 06:00 Resp 25 H 06/23/20 06:00 BP 127/87 06/23/20 06:00 Pulse Ox 95 06/23/20 06:00 Discharge Plan Discharge Patient Disposition: Home Condition: Stable Prescriptions: New atorvastatin 40 mg Tablet 80 mg PO BEDTIME Qty: 90 RF: 3 clopidogrel 75 mg Tablet 75 mg PO DAILY Qty: 90 RF: 3 aspirin 81 mg Tablet,Delayed Release (Dr/Ec) 81 mg PO DAILY Qty: 90 RF: 1 lisinopril 10 mg Tablet 10 mg PO DAILY Qty: 90 RF: 3 nitroglycerin 0.4 mg Tablet, Sublingual 0.4 mg sublingual Q5M PRN (Reason: Chest Pain) Qty: 30 RF: 1 metoprolol tartrate 25 mg Tablet 25 mg PO BID@0900,2100 Qty: 120 RF: 3 Discharge Orders: Discharge Order (Routine); Ordered 06/23/20 Ordered By: Ovidio Ackerman Discharge Diet: Cardiac Discharge Activity: Increase activity as tolerated Patient Instructions: Metoprolol (By mouth), Lisinopril (By mouth), Aspirin (By mouth), Nitroglycerin, Rapid Release (By mouth), Atorvastatin (By mouth), Clopidogrel (By mouth), Heart Healthy Diet, Left Heart Catheterization (DC), Coronary Angioplasty (DC), Opioid Safety Activity Restrictions/Additional Instructions: Please do not lift more than 5 pounds for the next 5 days. Please call your sales assistant institutional sales office as soon as possible to set up an appointment with them. See primary care physician in 3-5 days Discharge Attestations Time Spent in Discharge Care*: greater than 30 min Quality Metrics Clinical Quality Measures During this hospital stay, did patient experience: None Coding Level of Care Code Acute Chg FW RI note Diagnoses STEMI (ST elevation myocardial infarction) I21.3 Tobacco abuse Z72.0
[2020-06-23 10:11] LABS: Anion Gap 12.9 (5-19); Blood Urea Nitrogen 16 mg/dL (6-20); Calcium 8.6 mg/dL (8.5-10.5); Carbon Dioxide 26 mmol/L (22-29); Chloride 101 mmol/L (98-107); Glomerular Filtration Rate 117.5 mL/min (90-130); Glucose 143 mg/dL (65-115); Osmolality Calculated 286 mOsm/kg (285-295); Potassium 3.9 mmol/L (3.5-5.1); Sodium 136 mmol/L (136-145)
--- NOTE | 2020-06-23 11:40 | PC.NURSE ---
Discharge instructions given to pt and his . Both indicated understanding. [facility] pharmacy delivered meds to pt. Pt denies pain, SOB, or any needs. Cath puncture sites remain unremarkable. Pt given detailed instructions regarding care of sites, S/S to monitor for, new med education on all meds, reiterated importance of taking Plavix and Aspirin every day, as well as potential outcomes if meds missed. Both indicated understanding. IV sites removed. Catheters intact. Pt tolerated well. Pt wheeled out to private vehicle by nurse.
== END 2020-06-23 11:40 | disposition home or self-care (01) | DRG 247 ==
LOC: ER 17:26 → ICU 18:28
PROVIDERS: Admitting Provider Internal Medicine; Emergency Provider Family Medicine; Visit Provider Internal Medicine
PROC: 027034Z Dilation of Coronary Artery, One Artery with Drug-eluting Intraluminal Device, Percutaneous Approach (ICD-10-PCS; principal; 2020-06-21 17:00)
PROC: 027034Z Dilation of Coronary Artery, One Artery with Drug-eluting Intraluminal Device, Percutaneous Approach (ICD-10-PCS; 2020-06-21 17:00)
DX: I21.02 ST elevation (STEMI) myocardial infarction involving left anterior descending coronary artery (principal); F17.210 Nicotine dependence, cigarettes, uncomplicated
CPT/HCPCS: 36415; 36592; 71045; 80048; 80053; 82550; 83880; 84484; 85025; 85347; 85378; 85610; 85730; 93005; 93306; 93452; 96365; 96375; 99291; C1725; C1769; C1874; C1887; C1894; C8924; C9606; J1644; J2250; J2270; J2405; J3010; J3246; J3490; J7030; Q9956; Q9967